=== PATIENT | male | born 1950 | race Caucasian/White ===

== ENCOUNTER 2020-11-05 13:19 | Outpatient (CLI) | payer OTHER ==
[2020-11-05 14:13] LABS: MICROSCOPIC NOT IND
[2020-11-05 14:35] LABS: HCT (SEDRATE) 45.5 % (39.2-51.8)
[2020-11-05 14:37] LABS: BASOPHILS % (AUTO) 2 % (0-1); EOSINOPHILS % (AUTO) 3 % (1-7); LYMPHOCYTES % (AUTO) 25 % (22-44); MEAN CORPUSCULAR HEMOGLOBIN 31.8 pg (27.5-34.5); MEAN CORPUSCULAR HGB CONC 33.9 g/dL (33.2-36.2); MEAN PLATELET VOLUME 7.1 fL (7.4-10.4); MONOCYTES % (AUTO) 10 % (2-9); NEUTROPHILS % (AUTO) 61 % (42-75); PLATELET COUNT 295 x10^3/uL (130-400); RED BLOOD COUNT 4.75 x10^6/uL (4.38-5.82); RED CELL DISTRIBUTION WIDTH 12.7 % (9.4-14.8)
[2020-11-05 14:47] LABS: ALANINE AMINOTRANSFERASE 40 U/L (12-78); ALBUMIN 3.9 g/dL (3.4-5.0); ANION GAP 6 mmol/L (5-15); CALCIUM 9.3 mg/dL (8.5-10.1); CHLORIDE 103 mmol/L (98-107)
[2020-11-05 14:48] LABS: INTERNATIONAL NORMALIZED RATIO 0.96 (0.93-1.1); PROTHROMBIN TIME 10.3 Seconds (9.6-11.5)
[2020-11-05 14:49] LABS: ALKALINE PHOSPHATASE 85 U/L (45-117); BILIRUBIN,TOTAL 0.4 mg/dL (0.2-1.0); CREATININE 0.92 mg/dL (0.7-1.3); TOTAL PROTEIN 7.7 g/dL (6.4-8.2)
[2020-11-05] MEDS ORDERED: LORA-247 PO (14:55)
[2020-11-05] MEDS ORDERED: MULT-449 PO (14:55)
[2020-11-05] MEDS ORDERED: TRAM50TA2 PO (14:55)
[2020-11-05] MEDS ORDERED: VENL150C PO (14:55)
[2020-11-05] MEDS ORDERED: NORT25CA78 PO (14:55)
[2020-11-05] MEDS ORDERED: CALC-192 PO (14:55)
[2020-11-05] MEDS ORDERED: VITA1CAP PO (14:55)
[2020-11-05] MEDS ORDERED: GABA300C PO (14:55)
[2020-11-05] MEDS ORDERED: ALPR0.254 PO (14:55)
[2020-11-05] MEDS ORDERED: ALBU18HF INH (14:55)
[2020-11-05] MEDS ORDERED: ASPI81TA45 PO (14:55)
[2020-11-05] MEDS ORDERED: MAGN400C PO (14:55)
[2020-11-05] MEDS ORDERED: UBID100C41 PO (14:55)
[2020-11-05] MEDS ORDERED: ACET-2065 PO (14:55)
[2020-11-05] MEDS ORDERED: ZINC50TA44 PO (14:55)
[2020-11-05] MEDS ORDERED: IRBE150T9 PO (14:55)
[2020-11-05] MEDS ORDERED: CYCL10TA2 PO (14:55)
[2020-11-05] MEDS ORDERED: GLUC1CAP40 PO (14:55)
== END 2020-11-05 23:59 | disposition home or self-care (01) ==
LOC: STAR 13:19
PROVIDERS: ATTEND Orthopaedic Surgery Orthopaedic Surgery of the Spine
DX: Z01.818 Encounter for other preprocedural examination (principal); M48.02 Spinal stenosis, cervical region; M51.34 Other intervertebral disc degeneration, thoracic region; I44.7 Left bundle-branch block, unspecified
CPT/HCPCS: 36415; 71046; 80053; 80074; 81003; 85025; 85610; 85651; 85730; 87806; 93005; G0475

== ENCOUNTER 2020-11-12 09:23 | Inpatient (IN) | payer OTHER ==
[~2020-11-12] VITALS: Ht 167.6 cm; Wt 75.9 kg
[~2020-11-12 09:23] MED LIST: ACET-2065 PO; ALBU18HF INH; ALPR0.254 PO; ASPI81TA45 PO; CALC-192 PO; CYCL10TA2 PO; GABA300C PO; GLUC1CAP40 PO; IRBE150T9 PO; LORA-247 PO; MAGN400C PO; MULT-449 PO; NORT25CA78 PO; TRAM50TA2 PO; UBID100C41 PO; VENL150C PO; VITA1CAP PO; ZINC50TA44 PO
[2020-11-12] MEDS ORDERED: CHLORHEXIDINE 15 ML UDC PO ONE (10:00)
[2020-11-12] MEDS ORDERED: CHLORHEXIDINE 15 ML UDC ONE (10:04)
[2020-11-12] MEDS ORDERED: LACTATED RINGERS 1,000 ML IV SCH (10:30)
[2020-11-12] MEDS ORDERED: BUPIVACAINE/PF 0.5% ONE (10:48)
[2020-11-12] MEDS ORDERED: VANCOMYCIN 1,000 MG ONE (10:49)
[2020-11-12] MEDS ORDERED: LIDOCAINE/PF 1%, 30ML ONE (10:49)
[2020-11-12] MEDS ORDERED: THROMBIN 20,000 UNIT VIAL TP ONE (10:49)
[2020-11-12] MEDS ORDERED: EPINEPHRINE 1 MG/ML, 1ML ONE (10:49)
[2020-11-12] MEDS ORDERED: BUPIVACAINE/PF 0.25% ONE (10:49)
[2020-11-12] MEDS ORDERED: REMIFENTANIL 2 MG ONE (11:08)
[2020-11-12] MEDS ORDERED: NEOSTIGMINE 1 MG/ML, 10ML ONE (11:29)
[2020-11-12] MEDS ORDERED: ONDANSETRON 2MG/ML, 2ML ONE (11:29)
[2020-11-12] MEDS ORDERED: CEFAZOLIN 1,000 MG ONE (11:29)
[2020-11-12] MEDS ORDERED: DEXAMETHASONE 4 MG/ML, 5ML ONE (11:29)
[2020-11-12] MEDS ORDERED: PROPOFOL 10 MG/ML, 20ML ONE (11:29)
[2020-11-12] MEDS ORDERED: SUCCINYLCHOLINE 20 MG/ML, 10ML ONE (11:29)
[2020-11-12] MEDS ORDERED: GLYCOPYRROLATE 0.2MG/1ML, 5ML ONE (11:29)
[2020-11-12] MEDS ORDERED: METHYLENE BLUE 50 MG/10 ML AMP ONE (11:50)
[2020-11-12] MEDS ORDERED: INDIGO CARMINE 0.8%, 5ML IV ONE (12:00)
[2020-11-12] MEDS ORDERED: FENTANYL PF 250 MCG/5ML ONE ×2 (12:14→14:15)
[2020-11-12] MEDS ORDERED: methylPREDNISolone*ACETATE* 80 MG/ML ONE (13:58)
[2020-11-12] MEDS ORDERED: OXYcodone 5 MG/5 ML ORAL.SOL UDC ONE (14:33)
[2020-11-12] MEDS ORDERED: FENTANYL PF 100 MCG/2ML ONE ×2 (14:33→15:07)
[2020-11-12] MEDS ORDERED: HYDROmorphone 2 MG/ML, 1ML ONE (14:33)
[2020-11-12] MEDS: FENTANYL PF 100 MCG/2ML IV PRN ×2 (14:34→14:40)
[2020-11-12] MEDS: HYDROmorphone 1 MG/ML, 1ML INJ IVPush PRN ×4 (14:45→15:10)
[2020-11-12] MEDS ORDERED: ONDANSETRON 2MG/ML, 2ML IVPush PRN (15:00)
[2020-11-12] MEDS ORDERED: PROMETHAZINE 25 MG/ML, 1ML IVPush PRN (15:00)
[2020-11-12] MEDS ORDERED: METHOCARBAMOL 1,000 MG in DEXTROSE 5% 100 ML IV PRN (15:00)
[2020-11-12] MEDS ORDERED: MEPERIDINE/PF 25MG/0.5ML IVPush PRN (15:00)
[2020-11-12] MEDS ORDERED: LABETALOL 5MG/ML, 20ML IV PRN ×2 (15:00→17:00)
[2020-11-12] MEDS ORDERED: EPHEDRINE 50 MG/ML, 1ML IVPush PRN (15:00)
[2020-11-12] MEDS ORDERED: OXYcodone 5 MG/5 ML ORAL.SOL UDC PO PRN (15:00)
[2020-11-12] MEDS ORDERED: ACETAMINOPHEN 325 MG TABLET PO PRN (15:00)
[2020-11-12] MEDS ORDERED: hydrALAzine 20 MG/ML, 1ML IV PRN (15:00)
[2020-11-12] MEDS ORDERED: LORazepam 2 MG/ML, 1ML IVPush PRN (15:00)
[2020-11-12] MEDS ORDERED: MEPERIDINE/PF 25MG/ML,1ML ONE (15:07)
[2020-11-12 16:15] VITALS: BP 155/88
[2020-11-12] MEDS ORDERED: DIAZEPAM 5 MG TABLET PO PRN (17:00)
[2020-11-12] MEDS ORDERED: ONDANSETRON 2MG/ML, 2ML IV PRN (17:00)
[2020-11-12] MEDS: DEXAMETHASONE 4 MG/ML, 1ML IV SCH ×2 (17:36→23:10)
[2020-11-12] MEDS: D5%-0.9% NACL+KCL 20MEQ 1,000 ML IV SCH (17:36)
[2020-11-12] MEDS: DIAZEPAM 5 MG/ML, 2ML IV PRN (18:27)
[2020-11-12 19:25] VITALS: BP 127/79
[2020-11-12] MEDS: CEFAZOLIN PMX 1GM/50ML 50 ML IVPB SCH (19:51)
[2020-11-12] MEDS: GABAPENTIN 300 MG CAPSULE PO SCH (21:14)
[2020-11-12] MEDS: OXYcodone IR 5MG TABLET PO PRN (21:15)
[2020-11-12 23:36] VITALS: BP 136/85
[2020-11-13] MEDS: OXYcodone IR 5MG TABLET PO PRN ×5 (00:07→14:01)
[2020-11-13] MEDS: DIAZEPAM 5 MG/ML, 2ML IV PRN (00:21)
[2020-11-13] MEDS: D5%-0.9% NACL+KCL 20MEQ 1,000 ML IV SCH ×2 (02:16→09:00)
[2020-11-13] MEDS: CEFAZOLIN PMX 1GM/50ML 50 ML IVPB SCH (03:07)
[2020-11-13 03:09] VITALS: BP 133/80
[2020-11-13] MEDS: DEXAMETHASONE 4 MG/ML, 1ML IV SCH (04:49)
[2020-11-13 07:53] VITALS: BP 132/71
[2020-11-13] MEDS ORDERED: SENNA/DOCUSATE TABLET PO SCH (09:00)
[2020-11-13] MEDS: GABAPENTIN 300 MG CAPSULE PO SCH (09:22)
== END 2020-11-13 14:09 | disposition home or self-care (01) | DRG 473 ==
LOC: ORIP 09:23 → 4NE 16:10
PROVIDERS: ADMIT Orthopaedic Surgery Orthopaedic Surgery of the Spine; ATTEND Orthopaedic Surgery Orthopaedic Surgery of the Spine
PROC: 01N10ZZ Release Cervical Nerve, Open Approach (ICD-10-PCS; 2020-11-12)
PROC: 0RG20A0 Fusion of 2 or more Cervical Vertebral Joints with Interbody Fusion Device, Anterior Approach, Anterior Column, Open Approach (ICD-10-PCS; principal; 2020-11-12 11:30)
DX: M48.02 Spinal stenosis, cervical region (principal); M50.122 Cervical disc disorder at C5-C6 level with radiculopathy; M50.123 Cervical disc disorder at C6-C7 level with radiculopathy
CPT/HCPCS: 36415; 72040; J3490; S0020; 86850; 86900; 95938; 95941; C1713; G0378; J0171; J0690; J1100; J1170; J2175; J2405; J2704; J2710; J3010; J3360; J3370; Q9968; C1762; C1889; J0330; J1040; J2800; J3480; J7120